=== PATIENT | male | born 1955 | race Caucasian/White ===

== ENCOUNTER 2017-12-31 10:47 | Observation (INO) | payer BC ==
[~2017-12-31] VITALS: Ht 175.3 cm; Wt 97.5 kg
[~2017-12-31 10:47] MED LIST: ASPIR 8181 M1 PO; CITALOPRAM HBR20 MG PO; COZAAR100 MG PO; GABAPENTIN300 MG PO; HYDROCHLOROTHIA25 MG PO; JANUVIA100 MG PO; LEVEMIR100 UNIT/2 SC; METFORMIN HCL1000 MG PO; OMEPRAZOLE20 M2 PO; SIMVASTATIN40 MG PO; TRICOR145 MG PO
[2017-12-31 11:41] LABS: BASOPHIL (%) 0.9 % (0-1); BASOPHIL COUNT 0.1 K/uL (0-0.1); EOSINOPHIL (%) 3.9 % (0-5); EOSINOPHIL COUNT 0.2 K/uL (0-0.3); HEMATOCRIT 39.8 % (38.0-50.0); HEMOGLOBIN 14.3 G/DL (12.5-16.6); IMMATURE GRANULOCYTE (%) 0.7 % (0.0-0.7); LYMPHOCYTE (%) 21.5 % (15-42); LYMPHOCYTE COUNT 1.2 K/uL (1.0-2.8); MCH 29.9 PG (29.0-34.0); MCHC 35.9 G/DL (30.0-36.0); MCV 83.3 FL (86-99); MONOCYTE (%) 7.5 % (3-12); MONOCYTE COUNT 0.4 K/uL (0-0.8); NEUTROPHIL (%) 65.5 % (45-76); NEUTROPHIL COUNT 3.7 K/uL (1.8-6.4); PLATELET COUNT 244 K/uL (156-360); RBC DIS.WIDTH-CV 12.4 % (11.8-14.6); RBC DIS.WIDTH-SD 37.2 % (39-53); RED BLOOD COUNT 4.78 M/uL (4.00-5.50); WHITE BLOOD COUNT 5.6 K/uL (4.1-10.2)
[2017-12-31 11:52] LABS: CHLORIDE 108 mEq/L (99-109); SODIUM 140 mEq/L (136-147)
[2017-12-31 11:53] LABS: GLUCOSE 126 mg/dL (70-99)
[2017-12-31 11:57] LABS: CREATININE 1.1 mg/dL (0.6-1.3); GFR ESTIMATE (CALCULATED) > 59 mL/min/ (58.99-99999)
[2017-12-31 11:58] LABS: UREA NITROGEN (BUN) 22 mg/dL (9-23)
[2017-12-31 11:59] LABS: INTER. NORMALIZED RATIO 1.1
[2017-12-31 12:01] LABS: PTT 24.8 SEC (25-37); TROP-I INTERPRETATION NEGATIVE; TROPONIN-I 0.03 ng/mL (0.0-0.30)
[2017-12-31] MEDS ORDERED: NOVOLOG 10100 UNITS/ SC ×4 (13:12→13:14)
[2017-12-31] MEDS ORDERED: ZYRTEC5 MG PO (13:15)
[2017-12-31 17:50] LABS: TROP-I INTERPRETATION NEGATIVE; TROPONIN-I 0.03 ng/mL (0.0-0.30)
[2017-12-31 17:52] VITALS: BP 164/87
[2017-12-31 19:02] VITALS: BP 130/76
[2017-12-31 23:32] LABS: TROP-I INTERPRETATION NEGATIVE; TROPONIN-I 0.05 ng/mL (0.0-0.30)
[2018-01-01 00:17] VITALS: BP 157/85
[2018-01-01 03:42] VITALS: BP 138/82
[2018-01-01 07:42] VITALS: BP 158/91
== END 2018-01-01 10:07 | disposition home or self-care (01) ==
LOC: EME 10:47 → 4SOUTH 13:30 → EDOF 13:30 → 4SOUTH 13:30 → CANRESERV 13:33 → ENRESERV 13:33 → 4SOUTH 17:49
PROVIDERS: Emergency Medicine; Hospitalist; Physician Assistant
DX: R07.9 Chest pain, unspecified (principal); E11.9 Type 2 diabetes mellitus without complications; I10 Essential (primary) hypertension; F32.9 Major depressive disorder, single episode, unspecified; F41.9 Anxiety disorder, unspecified; R42 Dizziness and giddiness; M25.512 Pain in left shoulder; I25.10 Atherosclerotic heart disease of native coronary artery without angina pectoris; E78.5 Hyperlipidemia, unspecified; Z87.891 Personal history of nicotine dependence; Z82.49 Family history of ischemic heart disease and other diseases of the circulatory system; Z87.442 Personal history of urinary calculi; Z90.49 Acquired absence of other specified parts of digestive tract; Z79.82 Long term (current) use of aspirin; Z79.4 Long term (current) use of insulin; Z88.1 Allergy status to other antibiotic agents; Z88.8 Allergy status to other drugs, medicaments and biological substances
CPT/HCPCS: 70450; 71045; 80048; 82948; 84484; 85025; 85610; 85730; 93005; G0378; J1644; J1815